=== PATIENT | female | born 1985 | race Caucasian/White ===

== ENCOUNTER 2018-03-20 05:46 | Day surgery (SDC) | payer BC ==
[~2018-03-20] VITALS: Ht 167.6 cm; Wt 77.2 kg
[~2018-03-20 05:46] MED LIST: ADIPEX-P37.5 MG PO; PAXIL40 MG PO; SPRINTEC1 EACH PO; TOPAMAX100 MG PO
[2018-03-20 06:34] VITALS: BP 110/58
[2018-03-20] MEDS ORDERED: ENDOCET 5-3251 EACH PO (07:13)
[2018-03-20] MEDS ORDERED: IBUPROFEN800 MG PO (07:13)
[2018-03-20 09:35] VITALS: BP 112/81
[2018-03-20 10:25] VITALS: BP 115/80
== END 2018-03-20 10:25 | disposition home or self-care (01) ==
LOC: SDC 05:46
DX: Z30.2 Encounter for sterilization (principal); N92.0 Excessive and frequent menstruation with regular cycle; N83.8 Other noninflammatory disorders of ovary, fallopian tube and broad ligament; Z88.2 Allergy status to sulfonamides; Z88.8 Allergy status to other drugs, medicaments and biological substances; Z88.5 Allergy status to narcotic agent
CPT/HCPCS: 87641; 88302; 88305; J0131; J1100; J1170; J1885; J2250; J2405; J2710; J3010; J7643; Q0175